=== PATIENT | male | born 2000 | race Caucasian/White ===

== ENCOUNTER 2023-12-16 01:51 | Emergency (ER) | payer OTHER ==
[2023-12-16] MEDS ORDERED: Ondansetron PF 4 MG/2 ML Vial ONE (02:27)
[2023-12-16 02:45] LABS: Bilirubin Neg (Negative); Blood, Urine Negative (Negative); Clarity Clear (Clear); Glucose, Urine (Dipstick) Normal (Negative); Ketone, Urine 5 mg/dL (Negative); Leukocyte Negative (Negative); Nitrite Negative (Negative); Protein, Urine (Dipstick) 30 mg/dl (Neg-Trace); Specific Gravity, Urine 1.025 (1.005-1.030); Urobilinogen Normal mg/dL (Less than 2)
[2023-12-16 02:52] LABS: #Basophils 0.1 10x3/uL (0.0-0.2); #Monocytes 0.5 10x3/uL (0.0-1.1); #Neutrophils 6.9 10x3/uL (1.5-8.4); %Eosinophils 0.4 % (0.0-6.0); %Lymphocytes 27.4 % (18.0-47.0); %Monocytes 5.1 % (0.0-10.0); %Neutrophils 65.4 % (40.0-75.0); Hematocrit 44.7 % (38.8-50.0); Hemoglobin 15.4 g/dL (13.5-17.5); Mean Corpuscular HGB CONC 34.5 g/dL (32.0-36.0); Mean Corpuscular Hemoglobin 30.3 pg (27.0-33.0); Mean Corpuscular Volume 87.8 fl (81.2-95.1); Mean Platelet Volume 10.5 fl (7.4-10.4); Platelet Count 308 10x3/uL (150-450); RBC Distribution Width 13.2 % (11.5-14.5); Red Blood Cell (RBC) Count 5.09 10x6/uL (4.32-5.72); White Blood Cell (WBC) Count 10.5 10x3/uL (3.5-10.5)
[2023-12-16 02:54] LABS: Amphetamine Not Detected (NotDetected); Barbiturates Screen Not Detected (NotDetected); Benzodiazepine Screen Not Detected (NotDetected); Cocaine Metabolite Screen Not Detected (NotDetected); Methadone Not Detected (NotDetected); Methamphetamine Not Detected (NotDetected); Opiate Screen Not Detected (NotDetected); Oxycodone Screen Not Detected (NotDetected); Phencyclidine (PCP) Not Detected (NotDetected); THC/Cannabinoid Screen Detected (NotDetected); Tricyclic Screen Not Detected (NotDetected)
[2023-12-16 03:02] LABS: ALT (SGPT) 37 U/L (8-55); AST (SGOT) 33 U/L (5-34); Albumin 4.9 g/dL (3.5-5.0); Alkaline Phosphatase 46 U/L (40-110); Anion Gap 19 mmol/L (10-20); BUN (Urea Nitrogen) 9 mg/dL (8.9-20.6); Bilirubin, Total 0.4 mg/dL (0.2-1.2); Calc. Creatinine Clearance 0 mL/min (70-130); Calcium 9.2 mg/dL (7.8-10.44); Carbon Dioxide 20 mmol/L (22-29); Chloride 105 mmol/L (98-107); Estimated GFR 105; Globulin 2.7 g/dL (2.4-3.5); Glucose 108 mg/dL (70-105); Potassium 4.2 mmol/L (3.5-5.1); Protein, Total 7.6 g/dL (6.0-8.3); Sodium 140 mmol/L (136-145)
[2023-12-16 03:03] LABS: Acetaminophen Less than 10 mcg/mL (10.0-30.0); Alcohol 81.5 mg/dL (Less than 10); Lipase 29 U/L (8-78); Magnesium 2.1 mg/dL (1.6-2.6); Salicylate Less than 8.0 mg/dL (15.0-30.0)
[2023-12-16 03:11] LABS: RBC/HPF None Seen HPF (0-3)
[2023-12-16 03:12] LABS: Bacteria/HPF None Seen HPF (None Seen); CAUTI Indications for Culture Alt mental st,lethar; Calcium Oxalate Crystals Rare HPF (None Seen); Squamous Epithelial None Seen HPF (0-3); WBC/HPF None Seen HPF (0-3)
[2023-12-16 03:13] LABS: Urine Culture Reflex No No
[2023-12-16 03:23] LABS: SARS-CoV-2 NAA Rapid Test Not Detected (NotDetected)
[2023-12-16] MEDS ORDERED: Ketorolac Tromethamine 30 MG (1 mL) VIAL ONE (03:23)
[2023-12-16] MEDS ORDERED: Dexamethasone 10 MG/ML VIAL ONE (03:23)
== END 2023-12-16 03:57 | disposition home or self-care (01) ==
LOC: CSHERS 01:51
DX: T50.995A Adverse effect of other drugs, medicaments and biological substances, initial encounter (principal)
CPT/HCPCS: 80053; 80306; 80307; 81001; 83690; 83735; 84443; 85025; 93005; 96361; 96374; 96375; J1100; J1885; J2405